=== PATIENT | male | born 1975 | race Caucasian/White ===

== ENCOUNTER 2017-08-31 21:46 | Emergency (ER) | payer BC ==
[~2017-08-31] VITALS: Ht 170.2 cm; Wt 99.8 kg
[2017-08-31] MEDS ORDERED: ONDANSETRON PF 4 MG/2 ML VIAL. IV ONE (22:30)
[2017-08-31] MEDS ORDERED: IV NORMAL SALINE 1,000ML 1,000 ML IV ONE (22:30)
--- NOTE | 2017-08-31 22:36 | PHYS DOC ---
Past History Past Medical History: DVT, Other Past Surgical History: Other Alcohol Use: Occasionally Drug Use: None Adult General Chief Complaint Chief Complaint: NAUSEA/VOMITING/DIARRHEA HPI HPI 42-year-old male presents with intermittent nausea and vomiting for the last few days. The patient is paralyzed below the waist. Patient was treated a few days ago for UTI, but is not murmur the name of the antibiotic. Since that time , he has had some vomiting. The patient became more concerned today because he has had several episodes which is unusual. He has not had a bowel movement today. His belly was normal yesterday. He has not noticed any changes in his urine. He denies fever, chills, chest pain, shortness of breath, cough. Review of Systems Review of Systems Constitutional: Denies fever or chills [] Eyes: Denies change in visual acuity, redness, or eye pain [] HENT: Denies nasal congestion or sore throat [] Respiratory: Denies cough or shortness of breath [] Cardiovascular: No additional information not addressed in HPI [] GI: Has nausea, vomiting. Denies bloody stools or diarrhea [] : Denies dysuria or hematuria [] Musculoskeletal: Denies back pain or joint pain [] Integument: Denies rash or skin lesions [] Neurologic: Denies headache, focal weakness or sensory changes [] Endocrine: Denies polyuria or polydipsia [] All other systems were reviewed and found to be within normal limits, except as documented in this note. Current Medications Current Medications Current Medications Medications (Trade) Dose Ordered [facility] Start Time Stop Time Status Last Admin Dose Admin Ondansetron HCl (Zofran) 4 mg 1X ONCE 08/31/17 22:30 08/31/17 22:31 DC Sodium Chloride 1,000 ml @ 1,000 mls/hr 1X ONCE 08/31/17 22:30 08/31/17 23:29 Allergies Allergies Allergies Coded Allergies Type Severity Reaction Last Updated Verified No Known Drug Allergies 08/31/17 No Physical Exam Physical Exam Constitutional: Well developed, well nourished, no acute distress, non-toxic appearance. In a wheelchair[] HENT: Normocephalic, atraumatic, bilateral external ears normal, oropharynx moist, no oral exudates, nose normal. [] Eyes: PERRLA, EOMI, conjunctiva normal, no discharge. [] Neck: Normal range of motion, no tenderness, supple, no stridor. [] Cardiovascular:Heart rate regular rhythm, no murmur [] Lungs & Thorax: Bilateral breath sounds clear to auscultation [] Abdomen: Bowel sounds normal, soft, no tenderness, no masses, no pulsatile masses. [] Skin: Warm, dry, no erythema, no rash. [] Back: No tenderness, no CVA tenderness. [] Extremities: No tenderness, no cyanosis, no clubbing, ROM intact, no edema. Paralyzed below the waist[] Neurologic: Alert and oriented X 3, normal motor function, normal sensory function, no focal deficits noted. [] Psychologic: Affect normal, judgement normal, mood normal. [] Current Patient Data Vital Signs Vital Signs Date Time Temp Pulse Resp B/P (MAP) Pulse Ox O2 Delivery O2 Flow Rate FiO2 08/31/17 22:05 98.2 88 19 96 Room Air EKG EKG [] Radiology/Procedures Radiology/Procedures [] Impressions: INDICATION : elevated liver enzymes, lipase COMPARISON: None TECHNIQUE: Multiple ultrasound images obtained through the abdomen in grayscale and color. FINDINGS: Liver: Only partially seen secondary to overlying structures obscuring. Appears echogenic. Gallbladder: Gallstones are visualized IVC: Obscured Common Bile Duct: 13 mm Pancreas: Obscured Right Kidney: No hydronephrosis. IMPRESSION: 1. Gallstones are identified with dilation of the common bile duct. Given this dilation cannot exclude a distal stricture or stone within the biliary tree. If further clarification is desired follow-up MRCP or ERCP could better evaluate. 2. Liver is echogenic. Nonspecific but can be seen with fatty infiltration. 3. Fluid-filled structures seen near midline. The most likely cause is a loop of bowel within the area but this is only partially seen so would be difficult to definitively exclude a small pocket of fluid in the area anterior to the pancreas Electronically signed by: Christoph Sweeney MD (09/01/2017 2:43 AM) [facility] DICTATED AND SIGNED BY: CHRISTOPH SWEENEY MD DATE: 09/01/17 0226 CC: THANG LINDO DO; STEVE HAIRSTON PA ~ PROCEDURE: CT ABD PELV W/ IV CONTRST ONLY INDICATION: Omni 300, 75ml IV. Elevated lipase. Hx spinal cord injury and paralysis 1997. COMPARISON: None. TECHNIQUE: Axial CT images obtained through the abdomen and pelvis with contrast. One or more of the following individualized dose reduction techniques were utilized for this examination: 1. Automated exposure control; 2. Adjustment of the mA and/or kV according to patient size; 3. Use of iterative reconstruction technique. FINDINGS: Probable basilar atelectasis. Abdominal aorta is not aneurysmal. Catheter within the decompressed urinary bladder. Postoperative changes to the left proximal femur partially seen. Postoperative appearance of the lower thoracic spine with pedicle screws and west. High density material within the gallbladder, could be gallstones. There is also a linear metallic density structure seen between the liver and gallbladder. Metallic density structure seen within the inferior vena cava with portions extending superficial to the wall. Peripancreatic edema is seen as well as common bile duct dilation. Splenic calcified granuloma. No left-sided hydronephrosis. Subcentimeter low-density left renal lesion which is not well characterized on this exam. No right-sided hydronephrosis. Fat-containing umbilical hernia. The appendix does not appear grossly inflamed. No dilated loops of bowel to suggest obstruction. Degenerative changes of spine with scoliotic curvature. IMPRESSION: 1. Edema adjacent to the pancreas which can be seen with pancreatitis. 2. Gallstones are visualized as well as bile duct dilation. Would correlate with symptoms within the region given that in the presence of pancreatitis causes such as choledocholithiasis are possible. If more complete characterization is desired MRCP could better evaluate. 3. Inferior vena cava filter is visualized with many of the legs extending outside of the lumen which is a common finding. There is also a linear metallic density structure within the right upper quadrant adjacent to the liver and gallbladder. Could be postoperative in nature or secondary to one of the legs of the inferior vena cava filter that has become detached. Electronically signed by: Christoph Sweeney MD (09/01/2017 5:24 AM) [facility] Course & Med Decision Making Course & Med Decision Making Pertinent Labs and Imaging studies reviewed. (See chart for details) The patient's labs are significant for elevated liver enzymes and alk phosphatase. I ordered an acute abdominal series x-ray as well as right upper quadrant ultrasound. The patient's lipase is 39,100. Ultrasound shows dilation of the common bile duct. No definite no shortening stone is seen, but obstruction or stricture is likely. ERCP is recommended. There were some puncture shows fluid-filled structures midline, near the pancreas. CT would provide further clarification of these structures. Abdominal CT has been ordered. Given the fact that the patient needs an MRCP or ERCP, I will transfer him to [facility] I discussed the patient with Dr. Avalos and she has accepted the patient for transfer. I discussed all these results with the patient. He has agreed to transfer. He has asked to transfer by private vehicle. Given his stable condition I feel that he can go by private vehicle if another person drives. 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 [] Dragon Disclaimer Dragon Disclaimer This electronic medical record was generated, in whole or in part, using a voice recognition dictation system. Departure Departure: Referrals: ELIZABETH RUBALCAVA APRN (PCP) THANG LINDO DO Aug 31, 2017 22:36
[2017-08-31 23:18] LABS: BASO % 0 % (0-3); EOS % 0 % (0-3); HEMATOCRIT 46.5 % (39.0-53.0); HEMOGLOBIN 15.7 g/dL (13.0-17.5); LYMPH # 0.7 x10^3/uL (1.0-4.8); LYMPH % 6 % (24-48); MEAN CORPUSCULAR HEMOGLOBIN 31 pg (25-35); MEAN CORPUSCULAR HGB CONC 34 g/dL (31-37); MEAN CORPUSCULAR VOLUME 92 fL (79-100); MONO # 0.5 x10^3/uL (0.0-1.1); MONO % 5 % (0-9); NEUT # 10.8 x10^3uL (1.8-7.7); NEUT % 89 % (31-73); PLATELET COUNT 343 x10^3/uL (140-400); RED BLOOD COUNT 5.09 x10^6/uL (4.30-5.70); RED CELL DISTRIBUTION WIDTH 14.3 % (11.5-14.5); WHITE BLOOD COUNT 12.1 x10^3/uL (4.0-11.0)
[2017-08-31 23:30] LABS: CALCIUM 9.5 mg/dL (8.5-10.1); CREATININE 1.3 mg/dL (0.7-1.3); GFR 60.5; POTASSIUM 4.7 mmol/L (3.5-5.1); TOTAL BILIRUBIN 0.8 mg/dL (0.2-1.0); TOTAL PROTEIN 8.1 g/dL (6.4-8.2)
[2017-09-01 00:18] LABS: % BANDS 6 % (0-9); % BASOS 1 % (0-3); % LYMPHS 4 % (24-48); % MONOS 5 % (0-10); % SEGS 84 % (35-66); PLT ESTIMATE ADEQUATE (ADEQUATE)
[2017-09-01 01:18] LABS: BILIRUBIN,URINE NEG (NEG); CLARITY,URINE HAZY; COLOR,URINE YELLOW; GLUCOSE,URINE NEG (NEG); NITRITE,URINE NEG (NEG); RBC,URINE OCC /HPF (0-2); UROBILINOGEN,URINE 0.2 mg/dL (0.2 mg/dL)
[2017-09-01 01:19] LABS: BACTERIA,URINE FEW /HPF (0-FEW); SQUAMOUS EPITHELIAL CELL,UR FEW /LPF
[2017-09-01 02:37] VITALS: BP 135/83
--- NOTE | 2017-09-01 02:46 | RAD ---
INDICATION : elevated liver enzymes, lipase COMPARISON: None TECHNIQUE: Multiple ultrasound images obtained through the abdomen in grayscale and color. FINDINGS: Liver: Only partially seen secondary to overlying structures obscuring. Appears echogenic. Gallbladder: Gallstones are visualized IVC: Obscured Common Bile Duct: 13 mm Pancreas: Obscured Right Kidney: No hydronephrosis. IMPRESSION: 1. Gallstones are identified with dilation of the common bile duct. Given this dilation cannot exclude a distal stricture or stone within the biliary tree. If further clarification is desired follow-up MRCP or ERCP could better evaluate. 2. Liver is echogenic. Nonspecific but can be seen with fatty infiltration. 3. Fluid-filled structures seen near midline. The most likely cause is a loop of bowel within the area but this is only partially seen so would be difficult to definitively exclude a small pocket of fluid in the area anterior to the pancreas Electronically signed by: Justin Monte MD (09/01/2017 2:43 AM) [facility]
[2017-09-01] MEDS ORDERED: CONTRAST GIVEN MC PRN (03:45)
[2017-09-01] MEDS ORDERED: ONDANSETRON PF 4 MG/2 ML VIAL. IV PRN (04:00)
[2017-09-01] MEDS ORDERED: IOHEXOL 300 MG/ML 75 ML VIAL. IV ONE (04:00)
--- NOTE | 2017-09-01 05:27 | RAD ---
INDICATION: Omni 300, 75ml IV. Elevated lipase. Hx spinal cord injury and paralysis 1997. COMPARISON: None. TECHNIQUE: Axial CT images obtained through the abdomen and pelvis with contrast. One or more of the following individualized dose reduction techniques were utilized for this examination: 1. Automated exposure control; 2. Adjustment of the mA and/or kV according to patient size; 3. Use of iterative reconstruction technique. FINDINGS: Probable basilar atelectasis. Abdominal aorta is not aneurysmal. Catheter within the decompressed urinary bladder. Postoperative changes to the left proximal femur partially seen. Postoperative appearance of the lower thoracic spine with pedicle screws and west. High density material within the gallbladder, could be gallstones. There is also a linear metallic density structure seen between the liver and gallbladder. Metallic density structure seen within the inferior vena cava with portions extending superficial to the wall. Peripancreatic edema is seen as well as common bile duct dilation. Splenic calcified granuloma. No left-sided hydronephrosis. Subcentimeter low-density left renal lesion which is not well characterized on this exam. No right-sided hydronephrosis. Fat-containing umbilical hernia. The appendix does not appear grossly inflamed. No dilated loops of bowel to suggest obstruction. Degenerative changes of spine with scoliotic curvature. IMPRESSION: 1. Edema adjacent to the pancreas which can be seen with pancreatitis. 2. Gallstones are visualized as well as bile duct dilation. Would correlate with symptoms within the region given that in the presence of pancreatitis causes such as choledocholithiasis are possible. If more complete characterization is desired MRCP could better evaluate. 3. Inferior vena cava filter is visualized with many of the legs extending outside of the lumen which is a common finding. There is also a linear metallic density structure within the right upper quadrant adjacent to the liver and gallbladder. Could be postoperative in nature or secondary to one of the legs of the inferior vena cava filter that has become detached. Electronically signed by: Jsutin Monte MD (09/01/2017 5:24 AM) [facility]
--- NOTE | 2017-09-01 08:15 | RAD ---
PA view of the chest and supine and upright views of the abdomen were obtained. History: Abdominal pain and vomiting Comparison: none The lungs and pleural margins are clear. There is air and stool scattered the portions of the colon. There is a paucity small bowel gas. There is an IVC filter which has one limb flipped upward and has a limb which has broken off and projects over the liver. There has been prior fusion of the thoracic spine. There is no free air. There is a rectal tube in place. Impression: Constipation. Nonobstructive bowel gas pattern.
== END 2017-09-01 06:11 | disposition short-term general hospital (02) ==
LOC: ER 21:46
DX: R11.2 Nausea with vomiting, unspecified (principal); R74.8 Abnormal levels of other serum enzymes; Z86.718 Personal history of other venous thrombosis and embolism
CPT/HCPCS: 36415; 74022; 74177; 76705; 80053; 81001; 83690; 85007; 85025; 87086; 96361; 96374; 96376; 99285; J2405; Q9967; J7030

== ENCOUNTER → 2017-11-14 | Outpatient (CLI) | payer BC ==
--- NOTE | 2017-11-14 12:19 | RAD ---
EXAM: Bilateral lower extremity venous Doppler sonogram. HISTORY: Swelling. TECHNIQUE: Winslow scale and color Doppler sonographic evaluation of the bilateral lower extremity veins with spectral waveform analysis was performed. FINDINGS: There is normal color flow, normal compressibility and there are normal spectral waveforms in the common femoral, superficial femoral, popliteal, posterior tibial and greater saphenous veins. IMPRESSION: No Doppler evidence of lower extremity deep venous thrombosis. Electronically signed by: Chery Payan MD (11/14/2017 12:15 PM) [place] [id number]
== END | disposition home or self-care (01) ==
LOC: US 10:36
PROVIDERS: ATTEND Physician Assistant
DX: R22.41 Localized swelling, mass and lump, right lower limb (principal); R22.42 Localized swelling, mass and lump, left lower limb; Z86.718 Personal history of other venous thrombosis and embolism
CPT/HCPCS: 93970

== ENCOUNTER → 2020-04-09 | Outpatient (CLI) | payer BC | LOC: LAB 07:35 | PROVIDERS: ATTEND Nurse Anesthetist, Certified Registered | DX: Z01.812 Encounter for preprocedural laboratory examination (principal); Z20.822 Contact with and (suspected) exposure to COVID-19; K42.9 Umbilical hernia without obstruction or gangrene | CPT/HCPCS: U0003 ==

== ENCOUNTER → 2020-05-21 | Outpatient (CLI) | payer BC ==
[~2020-05-21] MED LIST: CYCL-331 PO
== END ==
LOC: LAB 07:30
PROVIDERS: ATTEND Nurse Anesthetist, Certified Registered
DX: Z01.812 Encounter for preprocedural laboratory examination (principal); K42.9 Umbilical hernia without obstruction or gangrene; Z20.822 Contact with and (suspected) exposure to COVID-19
CPT/HCPCS: U0003

== ENCOUNTER → 2020-05-25 | Day surgery (SDC) | payer BC ==
[~2020-05-25] MED LIST changes: +ACETAMINOPHEN 500 MG TABLET PO ONE; +BUPIVACAINE-EPI 0.25%-1:200000 MPF 30 ML VIAL. ONE; +IPRATRPIUM/ALBUTEROL 0.5/2.5MG 3 ML NEBU. NEB PRN; +IV RINGERS SOLUTION,LACTATED 1,000 ML IV SCH; +LIDOCAINE 2% PF 5 ML VIAL. ONE; +MIDAZOLAM HCL PF 2 MG/2 ML VIAL. IV ONE; +MIDAZOLAM HCL PF 2 MG/2 ML VIAL. ONE; +ONDANSETRON PF 4 MG/2 ML VIAL. IV PRN; +PROPOFOL 10,000 MCG/ML (20ML) VIAL IV ONE; +SUCCINYLCHOLINE 200 MG/10 ML VIAL. ONE
--- NOTE | 2020-05-25 12:30 | PDOC4 ---
Operative Report DATE May 25, 2020 at 1228 Preop Diagnosis Umbilical hernia incarcerated Post-op Diagnosis Same Operation Performed Umbilical hernia repair. Patient is a 45-year-old obese gentleman with an umbilical hernia incarcerated with omentum. Procedure of a hernia repair was explained to the patient detail risk benefits were also discussed including bleeding infection alternatives this procedure also discussed with patient who seemed to understand and gave both verbal and written consent to have procedure performed. Patient was taken to the operating room placed in the supine position IV sedation was initiated once patient was properly sedated his abdomen was prepped and draped in usual sterile fashion using ChloraPrep. Area around the umbilicus was injected with quarter percent Marcaine with epinephrine incision was made just below the umbilicus this was carried down through the subcutaneous tissues electrocautery and hemostasis the hernia sac was excised as well as the portion of the omentum the rest of the omentum was returned to the abdomen and the fascial defect was closed with a [id number] 0 Vicryl suture. The wound was then closed in 2 layers the deep layer running 3-0 Vicryl and the skin was reapproximated for subcuticular Monocryl Mastisol Steri-Strips and island dressings were applied. Patient tolerated procedure well was taken to recovery in stable condition all sponge instrument needle counts listed as correct estimated blood loss 5 mL Surgeon Angelito ANESTHESIA PROPOSED: MAC, LOCAL Blood Loss 5 mL Specimen Hernia sac and omentum Complications None KATELYNN GARCIA MD May 25, 2020 12:30
--- NOTE | 2020-05-25 12:32 | DISCH ---
DISCHARGE INSTRUCTIONS-DC Condition on Discharge Condition on Discharge: Stable Activity after Discharge Other activity instructions: No lifting more than 20 pounds for 2 weeks Diet after Discharge Diet after Discharge: Regular Wound/Incision Care Other wound/incision instructi: Marti shower in 24 hours Contacting the DROleg after DC Call your doctor for: If your condition worsens Follow-Up Follow up with: Dr. Garcia in 2 weeks KATELYNN GARCIA MD May 25, 2020 12:32
[2020-05-25 13:02] VITALS: BP 138/80
== END | disposition home or self-care (01) ==
LOC: SURG 10:26
PROVIDERS: ATTEND Surgery
DX: K42.0 Umbilical hernia with obstruction, without gangrene (principal); E66.9 Obesity, unspecified; Z86.718 Personal history of other venous thrombosis and embolism; Z79.899 Other long term (current) drug therapy
CPT/HCPCS: 49587; J0330; J0696; J2001; J2250; J2704; J3490; J7120; J3010

== ENCOUNTER → 2020-08-10 | Outpatient (CLI) | payer BC ==
[2020-05-25 13:02] VITALS: BP 138/80
[~2020-08-10] MED LIST changes: -ACETAMINOPHEN 500 MG TABLET PO ONE; -BUPIVACAINE-EPI 0.25%-1:200000 MPF 30 ML VIAL. ONE; -IPRATRPIUM/ALBUTEROL 0.5/2.5MG 3 ML NEBU. NEB PRN; -IV RINGERS SOLUTION,LACTATED 1,000 ML IV SCH; -LIDOCAINE 2% PF 5 ML VIAL. ONE; -MIDAZOLAM HCL PF 2 MG/2 ML VIAL. IV ONE; -MIDAZOLAM HCL PF 2 MG/2 ML VIAL. ONE; -ONDANSETRON PF 4 MG/2 ML VIAL. IV PRN; -PROPOFOL 10,000 MCG/ML (20ML) VIAL IV ONE; -SUCCINYLCHOLINE 200 MG/10 ML VIAL. ONE
--- NOTE | 2020-08-10 10:17 | RAD ---
INDICATION: Reason: COUGH X 1 WEEK, DECREASED BREATH SOUNDS ON EXAM / Spl. Instructions: / History: COMPARISON: August 2017 FINDINGS: Frontal and lateral view of chest obtained. Postoperative changes to the spine with pedicle screws and west. Cardiac silhouette is mildly enlarged . Haziness of the bilateral lungs. Compression fracture at thoracic spine with kyphosis. Osteophyte f ormation which can be seen with degenerative changes. Mild blunting of the costophrenic angles. IMPRESSION: * Mild haziness to the bilateral lungs which could be secondary to mild edema or infiltrate. Electronically signed by: Justin Monte MD (08/10/2020 10:15 AM) [id number]
== END ==
LOC: RAD 09:59
PROVIDERS: ATTEND Nurse Practitioner Family
DX: R05 Cough (principal)
CPT/HCPCS: 71046

== ENCOUNTER → 2020-09-27 | Outpatient (CLI) | payer BC ==
[2020-05-25 13:02] VITALS: BP 138/80
[2020-09-27 09:51] LABS: BASO % 0 % (0-3); EOS # 0.2 x10^3/uL (0.0-0.7); EOS % 3 % (0-3); HEMATOCRIT 33.6 % (39.0-53.0); HEMOGLOBIN 10.7 g/dL (13.0-17.5); LYMPH # 1.3 x10^3/uL (1.0-4.8); LYMPH % 23 % (24-48); MEAN CORPUSCULAR HEMOGLOBIN 27 pg (25-35); MEAN CORPUSCULAR HGB CONC 32 g/dL (31-37); MEAN CORPUSCULAR VOLUME 85 fL (79-100); MONO # 0.5 x10^3/uL (0.0-1.1); MONO % 9 % (0-9); NEUT # 3.7 x10^3uL (1.8-7.7); NEUT % 65 % (31-73); PLATELET COUNT 277 x10^3/uL (140-400); RED BLOOD COUNT 3.97 x10^6/uL (4.30-5.70); RED CELL DISTRIBUTION WIDTH 16.5 % (11.5-14.5); WHITE BLOOD COUNT 5.7 x10^3/uL (4.0-11.0)
[2020-09-27 10:06] LABS: C REACTIVE PROTEIN 48.2 mg/L (0-3.3); CREATININE 0.6 mg/dL (0.7-1.3); GFR 145.7
[2020-09-27 10:59] LABS: SEDIMENTATION RATE 59 (0-15)
== END ==
LOC: SPEC 09:36
PROVIDERS: ATTEND Internal Medicine Infectious Disease
DX: Z45.2 Encounter for adjustment and management of vascular access device (principal)
CPT/HCPCS: 36415; 82565; 84520; 85025; 85651; 86140

== ENCOUNTER → 2020-10-04 | Outpatient (CLI) | payer BC ==
[2020-05-25 13:02] VITALS: BP 138/80
[2020-10-04 09:00] LABS: BASO % 0 % (0-3); EOS # 0.3 x10^3/uL (0.0-0.7); EOS % 4 % (0-3); HEMOGLOBIN 10.9 g/dL (13.0-17.5); LYMPH # 1.4 x10^3/uL (1.0-4.8); LYMPH % 22 % (24-48); MEAN CORPUSCULAR HEMOGLOBIN 27 pg (25-35); MEAN CORPUSCULAR HGB CONC 32 g/dL (31-37); MEAN CORPUSCULAR VOLUME 85 fL (79-100); MONO # 0.6 x10^3/uL (0.0-1.1); MONO % 9 % (0-9); NEUT # 4.2 x10^3uL (1.8-7.7); NEUT % 65 % (31-73); PLATELET COUNT 268 x10^3/uL (140-400); RED BLOOD COUNT 4.03 x10^6/uL (4.30-5.70); RED CELL DISTRIBUTION WIDTH 16.6 % (11.5-14.5); WHITE BLOOD COUNT 6.4 x10^3/uL (4.0-11.0)
[2020-10-04 09:03] LABS: C REACTIVE PROTEIN 52.8 mg/L (0-3.3); CREATININE 0.6 mg/dL (0.7-1.3); GFR 145.7
[2020-10-04 10:06] LABS: SEDIMENTATION RATE 70 (0-15)
== END ==
LOC: SPEC 08:08
PROVIDERS: ATTEND Internal Medicine Infectious Disease
DX: Z45.2 Encounter for adjustment and management of vascular access device (principal)
CPT/HCPCS: 36415; 82550; 82565; 84520; 85025; 85651; 86140

== ENCOUNTER → 2020-10-11 | Outpatient (CLI) | payer BC ==
[2020-05-25 13:02] VITALS: BP 138/80
[2020-10-11 11:02] LABS: C REACTIVE PROTEIN 75.1 mg/L (0-3.3); CREATININE 0.5 mg/dL (0.7-1.3); GFR 179.8
[2020-10-11 11:29] LABS: BASO # 0.1 x10^3/uL (0.0-0.2); BASO % 1 % (0-3); EOS # 0.2 x10^3/uL (0.0-0.7); EOS % 3 % (0-3); HEMATOCRIT 34.1 % (39.0-53.0); HEMOGLOBIN 10.9 g/dL (13.0-17.5); LYMPH # 1.6 x10^3/uL (1.0-4.8); LYMPH % 20 % (24-48); MEAN CORPUSCULAR HEMOGLOBIN 27 pg (25-35); MEAN CORPUSCULAR HGB CONC 32 g/dL (31-37); MEAN CORPUSCULAR VOLUME 84 fL (79-100); MONO # 0.6 x10^3/uL (0.0-1.1); MONO % 8 % (0-9); NEUT # 5.2 x10^3uL (1.8-7.7); NEUT % 68 % (31-73); PLATELET COUNT 395 x10^3/uL (140-400); RED BLOOD COUNT 4.06 x10^6/uL (4.30-5.70); RED CELL DISTRIBUTION WIDTH 16.6 % (11.5-14.5); WHITE BLOOD COUNT 7.7 x10^3/uL (4.0-11.0)
[2020-10-11 13:07] LABS: SEDIMENTATION RATE 85 (0-15)
== END ==
LOC: SPEC 10:38
PROVIDERS: ATTEND Internal Medicine Infectious Disease
DX: Z45.2 Encounter for adjustment and management of vascular access device (principal)
CPT/HCPCS: 36415; 82550; 82565; 83605; 84520; 85025; 85651; 86140

== ENCOUNTER → 2020-10-18 | Outpatient (CLI) | payer BC ==
[2020-05-25 13:02] VITALS: BP 138/80
[2020-10-18 11:03] LABS: HEMATOCRIT 36.3 % (39.0-53.0); HEMOGLOBIN 11.5 g/dL (13.0-17.5); RED BLOOD COUNT 4.32 x10^6/uL (4.30-5.70); RED CELL DISTRIBUTION WIDTH 16.3 % (11.5-14.5); WHITE BLOOD COUNT 7.3 x10^3/uL (4.0-11.0)
[2020-10-18 11:11] LABS: C REACTIVE PROTEIN 73.5 mg/L (0-3.3); CREATININE 0.6 mg/dL (0.7-1.3); GFR 145.7
== END ==
LOC: SPEC 10:29
PROVIDERS: ATTEND Internal Medicine Infectious Disease
DX: Z45.2 Encounter for adjustment and management of vascular access device (principal)
CPT/HCPCS: 36415; 82550; 82565; 84520; 85027; 85651; 86140

== ENCOUNTER → 2020-10-25 | Outpatient (CLI) | payer BC ==
[2020-05-25 13:02] VITALS: BP 138/80
[2020-10-25 12:30] LABS: BASO # 0.1 x10^3/uL (0.0-0.2); BASO % 1 % (0-3); EOS # 0.3 x10^3/uL (0.0-0.7); EOS % 3 % (0-3); HEMATOCRIT 33.5 % (39.0-53.0); HEMOGLOBIN 10.9 g/dL (13.0-17.5); LYMPH # 1.6 x10^3/uL (1.0-4.8); LYMPH % 17 % (24-48); MEAN CORPUSCULAR HEMOGLOBIN 27 pg (25-35); MEAN CORPUSCULAR HGB CONC 32 g/dL (31-37); MEAN CORPUSCULAR VOLUME 82 fL (79-100); MONO # 0.8 x10^3/uL (0.0-1.1); MONO % 9 % (0-9); NEUT # 6.7 x10^3uL (1.8-7.7); NEUT % 71 % (31-73); PLATELET COUNT 354 x10^3/uL (140-400); RED BLOOD COUNT 4.06 x10^6/uL (4.30-5.70); WHITE BLOOD COUNT 9.5 x10^3/uL (4.0-11.0)
[2020-10-25 12:34] LABS: C REACTIVE PROTEIN 79.5 mg/L (0-3.3); CREATININE 0.6 mg/dL (0.7-1.3); GFR 145.7
[2020-10-25 14:59] LABS: SEDIMENTATION RATE 27 (0-15)
== END ==
LOC: SPEC 11:09
PROVIDERS: ATTEND Internal Medicine Infectious Disease
DX: Z45.2 Encounter for adjustment and management of vascular access device (principal)
CPT/HCPCS: 36415; 82550; 82565; 84520; 85025; 85651; 86140

== ENCOUNTER → 2020-11-01 | Outpatient (CLI) | payer BC ==
[2020-05-25 13:02] VITALS: BP 138/80
[2020-11-01 12:03] LABS: HEMOGLOBIN 10.3 g/dL (13.0-17.5); RED BLOOD COUNT 3.85 x10^6/uL (4.30-5.70); WHITE BLOOD COUNT 7.6 x10^3/uL (4.0-11.0)
[2020-11-01 12:26] LABS: C REACTIVE PROTEIN 75.4 mg/L (0-3.3); CREATININE 0.6 mg/dL (0.7-1.3); GFR 145.7
== END ==
LOC: LAB 10:03
PROVIDERS: ATTEND Internal Medicine Infectious Disease
DX: Z45.2 Encounter for adjustment and management of vascular access device (principal)
CPT/HCPCS: 36415; 82550; 82565; 84520; 85027; 85651; 86140

== ENCOUNTER → 2020-11-08 | Outpatient (CLI) | payer BC ==
[2020-05-25 13:02] VITALS: BP 138/80
[2020-11-08 10:35] LABS: BASO % 0 % (0-3); EOS # 0.3 x10^3/uL (0.0-0.7); EOS % 4 % (0-3); HEMATOCRIT 35.9 % (39.0-53.0); HEMOGLOBIN 11.5 g/dL (13.0-17.5); LYMPH # 1.7 x10^3/uL (1.0-4.8); LYMPH % 21 % (24-48); MEAN CORPUSCULAR HEMOGLOBIN 27 pg (25-35); MEAN CORPUSCULAR HGB CONC 32 g/dL (31-37); MEAN CORPUSCULAR VOLUME 83 fL (79-100); MONO # 0.6 x10^3/uL (0.0-1.1); MONO % 8 % (0-9); NEUT # 5.4 x10^3uL (1.8-7.7); NEUT % 67 % (31-73); PLATELET COUNT 466 x10^3/uL (140-400); RED BLOOD COUNT 4.33 x10^6/uL (4.30-5.70); RED CELL DISTRIBUTION WIDTH 15.9 % (11.5-14.5)
[2020-11-08 10:36] LABS: C REACTIVE PROTEIN 73.5 mg/L (0-3.3); CREATININE 0.8 mg/dL (0.7-1.3); GFR 104.5
[2020-11-08 11:49] LABS: SEDIMENTATION RATE 76 (0-15)
== END ==
LOC: SPEC 09:41
PROVIDERS: ATTEND Internal Medicine Infectious Disease
DX: Z45.2 Encounter for adjustment and management of vascular access device (principal)
CPT/HCPCS: 36415; 82550; 82565; 84520; 85025; 85651; 86140

== ENCOUNTER → 2020-11-15 | Outpatient (CLI) | payer BC ==
[2020-05-25 13:02] VITALS: BP 138/80
[2020-11-15 10:48] LABS: BASO % 0 % (0-3); EOS # 0.3 x10^3/uL (0.0-0.7); EOS % 3 % (0-3); HEMATOCRIT 32.5 % (39.0-53.0); HEMOGLOBIN 10.5 g/dL (13.0-17.5); LYMPH # 1.7 x10^3/uL (1.0-4.8); LYMPH % 17 % (24-48); MEAN CORPUSCULAR HEMOGLOBIN 27 pg (25-35); MEAN CORPUSCULAR HGB CONC 32 g/dL (31-37); MEAN CORPUSCULAR VOLUME 82 fL (79-100); MONO # 0.8 x10^3/uL (0.0-1.1); MONO % 9 % (0-9); NEUT # 7.2 x10^3uL (1.8-7.7); NEUT % 72 % (31-73); PLATELET COUNT 407 x10^3/uL (140-400); RED BLOOD COUNT 3.96 x10^6/uL (4.30-5.70)
[2020-11-15 11:12] LABS: CREATININE 0.5 mg/dL (0.7-1.3); GFR 179.8
[2020-11-15 12:05] LABS: SEDIMENTATION RATE 85 (0-15)
== END ==
LOC: SPEC 10:08
PROVIDERS: ATTEND Internal Medicine Infectious Disease
DX: Z45.2 Encounter for adjustment and management of vascular access device (principal)
CPT/HCPCS: 36415; 82550; 82565; 84520; 85025; 85651; 86140